=== PATIENT | male | born 1950 | race Caucasian/White ===

== ENCOUNTER 2018-10-12 08:01 | Inpatient (IN) ==
--- NOTE | 2018-09-21 12:10 | PAT Medication Instructions ---
Medication Instructions Date of Service September 21, 2018 Home Medications acetaminophen 650 mg PO Q12H PRN aspirin, buffered 325 mg PO QAM hydrocodone bitartrate 15 mg PO Q12H PRN lysine 500 mg PO QDD meloxicam 15 mg PO QAM metoprolol tartrate 25 mg PO QAM multivitamin 1 tab PO QAM potassium citrate 5 meq PO BID taurine 500 mg PO QDD ASK your surgeon for instructions meloxicam 15 mg PO QAM ASK your prescriber and surgeon aspirin, buffered 325 mg PO QAM STOP taking 2 weeks before surgery (or as soon as possible if surgery is within 2 weeks) lysine 500 mg PO QDD taurine 500 mg PO QDD DO NOT take the morning of surgery multivitamin 1 tab PO QAM potassium citrate 5 meq PO BID Take morning of surgery With a small sip of water, OTHERWISE NOTHING TO EAT OR DRINK AFTER MIDNIGHT: acetaminophen 650 mg PO Q12H PRN (okay to take up to 4 hours prior to surgery if needed) hydrocodone bitartrate 15 mg PO Q12H PRN (okay to take up to 4 hours prior to surgery if needed) metoprolol tartrate 25 mg PO QAM Take evening before surgery acetaminophen 650 mg PO Q12H PRN (if needed) hydrocodone bitartrate 15 mg PO Q12H PRN (if needed) potassium citrate 5 meq PO BID Other Notes If you have any questions please call us at [phone] or [phone] or [phone] or [phone]
--- NOTE | 2018-09-22 12:59 | Anesthesiology Consultation ---
Date of Service September 22, 2018 Assessment & Plan (1) Encounter for pre-operative examination: Cardio: 08/25/18: Chronic a. fib with controlled ventricular rate on ASA therapy "but I believe the patient does have increased risk for ischemic stroke and so we recommended chronic anticoagulation." Per cardio, to initiate Eliquis 5mg twice daily after knee surgery. "Cleared at low cardiac risk" for upcoming surgery. Chart Review Chart Review: Acceptable Risk for Surgery (pending surgeon-ordered PCP clearance scheduled 09/29 (Dr. Calderón)) and Patient seen in Pre Admission Testing Teaching & Discussion Pre-Anesthesia Teaching/Discussion Notes: Instructed NPO after midnight before surgery,except medications with 15 cc of water. Medication instructions pr ovided according to the PAT guidelines. History Surgery Operation Date: 10/12/18 10:20 Proposed Procedures p Left Total Knee Arthroplasty - [place] Antoinette Anderson MD Height/Weight Height: 5 ft 9 in Weight: 88.3 kg Allergies Allergy/AdvReac Type Severity Reaction Status Date / Time No Known Allergies Allergy Verified 09/17/18 12:23 Medications Home Medications Medication Instructions Recorded Confirmed Last Taken acetaminophen 650 mg PO Q12H PRN 09/17/18 09/17/18 Unknown aspirin, buffered 325 mg PO QAM 09/17/18 09/17/18 Unknown hydrocodone bitartrate 15 mg PO Q12H PRN 09/17/18 09/17/18 Unknown lysine 500 mg PO QDD 09/17/18 09/17/18 Unknown meloxicam 15 mg PO QAM 09/17/18 09/17/18 Unknown metoprolol tartrate 25 mg PO QAM 09/17/18 09/17/18 Unknown multivitamin 1 tab PO QAM 09/17/18 09/17/18 Unknown potassium citrate 5 meq PO BIDM 09/17/18 09/17/18 Unknown taurine 500 mg PO QDD 09/17/18 09/17/18 Unknown Past Medical History Medical History Atrial fibrillation Chronic neck and back pain History of skin cancer chest, face Hypertension Scoliosis Exercise / Class Metabolic Activity II 4-5 Yardwork/Stairs/Walk up hill Past Family History Family History Sister Family history of diabetes mellitus Other History of kidney stones Osteoarthritis Past Surgical History Surgical History History of ankle surgery LEFT History of carpal tunnel surgery of left wrist History of carpal tunnel surgery of right wrist History of surgery on left wrist Hx of LASIK Hx of arthroscopic knee surgery Hx of foot surgery LEFT Hx of nasal septoplasty Hx of toe surgery RIGHT Past Anesthesia History No Family Hx of Anesthesia Complications and Other Patient states with deviated septum (~2007) went into post-op new onset a. fib (now currently stable/monitored by cardio). History of PONV No Hx of PONV and No Hx of Motion Sickness Social History Smoking Status: Never smoker Do You Dip or Chew Tobacco: No Hx Alcohol Use: Yes alcohol intake frequency: holidays/special occasions only Hx Substance Use: No substance use type: does not use Review of Systems Hx reflux (no recent issues). Patient denies chest pain, shortness of breath, dyspnea on exertion, cough, wheezing. Physical Exam Vital Signs VITALS BP 132/92 P 70 TEMP 97.8 SP02 95%RA RESP 18 PHYSICAL Full neck and c-spine range of motion. Full TMJ range of motion. TMD 3.5 finger breaths Mallampati Score 3 Dentition: intact, upper front/several all over crowns Lungs: clear throughout to auscultation Cardiac: irregular rhythm, regular rate, no murmurs noted Spine: normal Carotid arteries: negative bruit Extremities: no edema Testing Laboratory Results 09/22/18 13:24 09/22/18 13:24 PT 10.3 Seconds (9.0-12.0) 09/22/18 13:24 INR 1.0 (0.9-1.1) 09/22/18 13:24 APTT 26.2 Seconds (21.0-31.0) 09/22/18 13:24 Blood Type O Negative 09/22/18 13:24 Antibody Screen NEGATIVE 09/22/18 13:24 Electrocardiogram Date: 09/22/18 Findings: + AFIB @ (82) Echocardiogram Date: 08/25/18 EF 50%. Normal contractility of wall segments. cLVH. Severe LAD. Mild RVD. Unable to determine diastolic function due to a. fib pattern. Thickened MV with MR. Mild ID. Mildly dilated aortic root (3.9cm).
[2018-09-22 14:25] LABS: Basophils # (auto) 0.05 K/uL (0-0.2); Basophils % (auto) 0.8 %; Eosinophils # (auto) 0.27 K/uL (0-0.5); Eosinophils % (auto) 4.3 %; Hematocrit (blood only) 46.5 % (42-52); Hemoglobin 15.5 g/dL (14.0-18.0); Immature Granulocytes # (auto) 0.01 K/uL (0.00-0.02); Immature Granulocytes % (auto) 0.2 %; Lymphocytes # (auto) 1.51 K/uL (1.2-3.4); Mean Corpuscular Hgb Conc 33.3 g/dL (32-36); Mean Corpuscular Volume 85.8 fL (80-100); Mean Platelet Volume 9.2 fL (7.4-10.4); Monocytes % (auto) 7.9 %; Neutrophils # (auto) 3.96 K/uL (1.4-6.5); Neutrophils % (auto) 62.8 %; Platelet Count 262 K/uL (130-400); RDW Coefficient of Variation 14.2 % (11.5-14.5); RDW Standard Deviation 44.1 fL (36.4-46.3); Red Blood Count 5.42 M/uL (4.7-6.1)
[2018-09-22 14:38] LABS: Partial Thromboplastin Time 26.2 Seconds (21.0-31.0); Prothrombin Time 10.3 Seconds (9.0-12.0)
[2018-09-22 14:42] LABS: Albumin Level 3.7 gm/dl (3.4-5.0); BUN Creatinine Ratio 16.5 (10-20); Bilirubin Direct 0.1 mg/dl (0-0.2); Calcium 8.9 mg/dl (8.5-10.1); Creatinine Clr Calc Pharmacy 58.3 ml/min; Est GFR (African American) 61.9; Est GFR (Non-African American) 53.4; Potassium 4.4 mmol/L (3.5-5.1)
[2018-09-22 14:45] LABS: Bilirubin,Total 0.6 mg/dl (0.2-1); Total Protein 6.8 gm/dl (6.4-8.2)
[~2018-10-12 08:01] MED LIST: BUPIVACAINE 0.5 % 5 MG/1 ML PF 10ML VIAL ONE; CEFAZOLIN 2000MG 2,000 MG/15 ML SYR IV SCH; CeleBREX 200 MG CAP PO SCH; LACTATED RINGER'S 1,000 ML IV SCH; LR 500ML BOLUS, THEN 15ML/HR IV SCH; ROPIVACAINE 0.5% 5 MG/ML 30 ML VIAL ONE; ROPIVACAINE 0.5% HCL/PF 150 MG, BUPIVACAINE 0.5% MPF 30 ML, EPINEPHrine 0.15 MG, Ketoro... INFIL SCH; TRANEXAMIC ACID 1,000 MG **IV Intra-op IV SCH; TRANEXAMIC ACID 1,000 MG **IV Pre-op IV SCH
[2018-10-12] MEDS ORDERED: MIDAZOLAM HCL 1 MG/ML 2ML VIAL ONE ×2 (09:28)
[2018-10-12] MEDS ORDERED: fentaNYL citrate 100 MCG/2 ML VIAL ONE ×2 (09:28→13:05)
[2018-10-12] MEDS ORDERED: ORTHO JOINT ANESTHETIC ONE (09:59)
--- NOTE | 2018-10-12 09:59 | History & Physical Bridge Note ---
Date of Service October 12, 2018 History & Physical Bridge Note I have examined the patient, reviewed the History & Physical and in the interval since the performance of the History & Physical I have noted the following changes of clinical significance: no changes noted
[2018-10-12] MEDS ORDERED: PROPOFOL IV EMULSION 10 MG/ML 20 ML VIAL IV ONE ×2 (11:34→12:58)
[2018-10-12] MEDS ORDERED: LIDOCAINE HCL 2% 2 ML VIAL/AMP(20MG/ML) INFIL ONE (11:37)
[2018-10-12] MEDS ORDERED: KETAMINE HCL INJ 50 MG/ML 10 ML VIAL ONE (12:46)
--- NOTE | 2018-10-12 13:35 | Post Operative Brief Note ---
Immediate Post Op Note v1 Date of Surgery October 12, 2018 Pre & Post Diagnosis Operation Date: 10/12/18 10:20 Pre-Op Diagnosis: Left Knee Osteoarthritis Post-Op Diagnosis: Left Knee Osteoarthritis Procedure Operation Date: 10/12/18 10:20 Actual Procedures p Left Total Knee Arthroplasty(Left) - Indio Anderson MD Surgeon Indio Anderson MD Seed Corn Manager Production Salinas Sanchez PA-C & Tu French MD Estimated Blood Loss 100 Findings Consistent with Post-Op Diagnosis Fluids 2000 cc Specimens Left Knee contents Anesthesia Type MAC Spinal Regional Complications none
--- NOTE | 2018-10-12 13:36 | Operative Report ---
Post Operative Report Pre & Post Diagnosis Operation Date: 10/12/18 10:20 Pre-Op Diagnosis: Left Knee Osteoarthritis Post-Op Diagnosis: Left Knee Osteoarthritis Procedure Operation Date: 10/12/18 10:20 Actual Procedures p Left Total Knee Arthroplasty(Left) - Indio Anderson MD Surgeon Indio Anderson MD Cellular Equipment Repairer Salinas Sanchez PA-C & Tu French MD Estimated Blood Loss 100 Findings See Below Examined Under Anesthesia: ROM -- There was 5 degrees to 120 degrees of flexion Ligamentous examination -- revealed stable Dillan, posterior drawer, varus and valgus stress at 0 and 30 degrees. [place] Type IV changes of tricompartments, with [id number] contact, sclerosis, osteophytes. In addition there was crystalline deposits within the soft tissue and menisci. Fluids 2000 cc Specimens Left knee contents Drains n/a Anesthesia Type MAC Spinal Regional Complications none Indications This is a 68-year-old male who has clinical and radiographic findings consistent with osteoarthritis of the a left knee. I recommended that a left total knee replacement be performed. The patient understands the risks of surgery, which include but not limited to: bleeding, infection, re-operation, damage to nerves and arteries, continued knee pain, knee stiffness, DVT, and . The patient understands all of these instructions and explanations, all of his questions have been satisfactorily addressed and the patient has elected to proceed. Informed consent was signed. Description of Procedure IMPLANTS: 1. Femur: Triathlon #5 left PS. 2. Tibia: Triathlon #6 [place]. 3. Insert: Triathlon #6 x 9 mm PS X3 poly. 4. Patella: Triathlon A32 x 10 mm X3 poly. 5. Palacos G cement. Procedure: The patient was taken to the Operating Room and placed in the supine position after spinal and adductor canal nerve block was administered. My initials and a multidisciplinary time-out were used to identify the left leg as the correct operative limb. A tourniquet was placed high in the thigh. Prior to the incision, 2 grams of intravenous Ancef were given. The left leg was then prepped and draped in a standard sterile fashion. An Esmarch was used to exsanguinate the leg and the tourniquet was inflated to 250 mmHg. The planned 22 cm incision midline proximally, slightly curved to incorporate previous wounds medially, was created exposing the extensor mechanism. The medial parapatellar arthrotomy was made and the patella was everted. The patella was addressed first. It was prepared by reaming from 24 mm down to 14 mm. An A32 button was found to fit best. The peg holes were made in the standard fashion. The femur was addressed next and the guide dale was placed intramedullary. The initial cutting block was placed with 5 degrees of valgus and removing 10 mm for the anterior cut. The cut was made and the 4-in-1 cutting block for a size 5 femur was placed. These cuts and the cuts to place the box were made in the standard fashion. Our attention was then drawn to the tibia cut with the external cutting guide, taking 2 mm from the medial low side. There was sufficient extension and flexion gap to fit a 9 mm spacer, was unable to fit an 11 mm spacer. A #6 Tibial baseplate fit well. A trial with a 9 mm spacer showed excellent stability in both flexion and extension, with good ligament balance. Range of motion of 0-125 degrees. The tibial baseplate was pinned and the final preparation for the keel and stem was made. All the trial components were tested again, with good stability and thumbs free tracking of the patella. All components were removed. The tourniquet was deflated. Hemostasis was obtained. 90 ml of total knee cocktail were injected into the soft tissues and periosteum. A bone plug was placed in the femur and covered with bone wax. After a 15 minute break, the limb was exsanguinated again and the tourniquet was re-inflated. All surfaces were copiously irrigated prior to placement of the components. The femoral component and Tibial baseplate were placed with the first batch of cement and a 9 mm trial placed. During the second batch of cement the patellar button was placed. Again with the 9 mm trial poly was placed and the range of motion and stability were unchanged. Once the cement had cured, the 9 mm X3 poly was placed. The extensor mechanism was closed with 1-0 and 0 Vicryl with the knee bent approximately 60 degrees in a standard fashion. The peritenon and deep fascia was closed with 2-0 Vicryl. The subcutaneous layer was closed with 3-0 Vicryl. The skin was closed with Zipline. The limb was cleaned and dried. 4x4 dressing was placed over top followed by ABDs, sterile Webril, and a foot to thigh Bassem bandage. The patient was then transferred to the Recovery Room in stable condition. The sponge and needle counts were correct. POST-OP INSTRUCTIONS: The patient will be WBAT. The patient will be admitted to the hospital. The patient will use the knee immobilizer when ambulating and standing until good quad control is achieved. Labs will be obtained during her stay. DVT prophylaxis will included aspirin 325 twice a day for 6 weeks, TEDs, and mechanical foot pumps. The dressing will be changed prior to their discharge or postop day #2 and covered with a Silverlon dressing, whichever comes first. I attest to the content of the Intraoperative Record and any orders documented therein. Any exceptions are noted below.
--- NOTE | 2018-10-12 13:41 | Operative Report ---
Post Operative Report Pre & Post Diagnosis Operation Date: 10/12/18 10:20 Pre-Op Diagnosis: Left Knee Osteoarthritis Post-Op Diagnosis: Left Knee Osteoarthritis Procedure Operation Date: 10/12/18 10:20 Actual Procedures p Left Total Knee Arthroplasty(Left) - Indio Anderson MD Surgeon Indio Anderson MD Core Blower Salinas Sanchez PA-C & Tu French MD Estimated Blood Loss 100 Findings Consistent with Post-Op Diagnosis Specimens see operative report Drains none Complications none Disposition Accompanied Patient To Recovery: Yes Disposition: Recovery Room Indications This 68-year-old white male presented to the office with complaints of intractable left knee pain. He had tried conservative care measures without improvement. Patient elected to proceed with surgical intervention after being educated about potential risks and outcomes. Preoperative imaging was obtained. Description of Procedure Patient was administered a regional block and spinal anesthetic and then taken to the operating room where he was given sedation. He was prepped and draped in the usual sterile fashion. Please see Dr. Anderson's operative report for specifics of the procedure. I was present for the entire case from initial patient positioning through final wound closure. Assistance was provided in tissue retraction, hemostasis, trial implant placement, final implant placement, and final wound closure. Patient was taken to the recovery room in satisfactory condition. I attest to the content of the Intraoperative Record and any orders documented t herein. Any exceptions are noted below.
--- NOTE | 2018-10-12 13:55 | Operative Report ---
Post Operative Report Pre & Post Diagnosis Operation Date: 10/12/18 10:20 Pre-Op Diagnosis: Left Knee Osteoarthritis Post-Op Diagnosis: Left Knee Osteoarthritis Procedure Operation Date: 10/12/18 10:20 Actual Procedures s/p Left Total Knee Arthroplasty(Left) - Indio Anderson MD Surgeon Dr Indio Anderson MD Meat Wrapper Salinas Sanchez PA-C & Tu French MD Estimated Blood Loss 100 Findings Consistent with Post-Op Diagnosis Specimens see operative report please Drains none Complications none Disposition Accompanied Patient To Recovery: Yes Disposition: Recovery Room Indications 68 yr old male with intractable left knee pain with radiological evidence of end stage osteoarthritis Description of Procedure Patient was administered regional block and spinal anaesthesia and then was taken to the operating toom with sedation. His left lower extremity was prepped and draped in standard fashion. Please see Dr Anderson's op report for specifications of the procedure. I was present during the entire case and assisted Dr Anderson in tissue retraction, closure and dressing. I also accompanied the patient to the recovery room in satisfactory condition. I attest to the content of the Intraoperative Record and any orders documented therein. Any exceptions are noted below. Supervising Physician Co-Signing Physician Notes Dr Indio Anderson MD
--- NOTE | 2018-10-12 14:14 | XRay Report ---
LEFT KNEE 2 VIEWS History: Left total knee arthroplasty. Degenerative arthritis. Postop. FINDINGS: The patient is status post a left total knee arthroplasty. The hardware is intact. No fract ure or dislocation. IMPRESSION: Left total knee arthroplasty. No evidence for hardware complication. Electronically signed by: Neal Romero M.D. 10/12/2018 2:13 PM
[2018-10-12] MEDS ORDERED: ATROPINE SULFATE 0.1 MG/ML 10ML SYR IV PRN (14:15)
[2018-10-12] MEDS ORDERED: ePHEDrine sulfate 50 MG/ML AMP IV PRN (14:15)
[2018-10-12] MEDS ORDERED: LABETALOL HCL IV 5 MG/ML 20ML IV PRN ×2 (14:26→14:27)
[2018-10-12] MEDS ORDERED: LABETALOL HCL IV 5 MG/ML 20ML IV ONE (14:30)
--- NOTE | 2018-10-12 14:33 | Anesthesiology Progress Note ---
Date of Service October 12, 2018 Anesthesia Post Procedure Vital Signs Vital Signs: Temp Pulse Pulse Resp BP BP Pulse Ox 10/12/18 14:10 82 21 161/97 H 100 10/12/18 14:00 82 12 152/94 H 100 10/12/18 13:50 84 14 145/99 H 98 10/12/18 13:41 36.4 C L 89 14 163/99 H 98 10/12/18 08:37 36.5 C 82 20 167/112 H 96 Pain Intensity Left Knee: Pain Intensity: 0 Transfer of Care Handoff Completed per policy Notes Mental Status: alert / awake / arousable and participated in evaluation Patient Amnestic to Procedure: Yes Nausea / Vomiting: adequately controlled Pain: adequately controlled Airway Patency, RR, SpO2: stable & adequate BP & HR: stable & adequate Hydration State: stable & adequate Neuraxial Anesthesia: was administered and sensory block is resolving Anesthetic Complications: no major complications apparent
[2018-10-12] MEDS ORDERED: ONDANSETRON INJ 2 MG/ML 2 ML VIAL IV PRN (15:10)
[2018-10-12] MEDS ORDERED: MAGNESIUM HYDROXIDE SUSP 30 ML UDC PO PRN (15:10)
[2018-10-12] MEDS ORDERED: DiphenhydrAMINE HCL 50 MG/ML VIAL IV PRN (15:10)
[2018-10-12] MEDS ORDERED: TAMSULOSIN HCL 0.4 MG CAP PO PRN (15:10)
[2018-10-12] MEDS ORDERED: OXYCODONE HCL IR 5 MG TAB (IMMEDIATE RELEASE) PO PRN (15:10)
[2018-10-12] MEDS ORDERED: METOCLOPRAMIDE HCL INJ 5 MG/ML 2 ML VIAL IV PRN (15:10)
[2018-10-12] MEDS ORDERED: HYDROmorphone INJ 0.5 MG/0.5 ML SYR IV PRN (15:10)
[2018-10-12] MEDS ORDERED: NALOXONE HCL 0.4 MG/1 ML VIAL/CARP IV PRN (15:10)
[2018-10-12] MEDS ORDERED: ALUMINUM/MAGNESIUM SUSP 30 ML UDC PO PRN (15:10)
[2018-10-12] MEDS ORDERED: BISACODYL 10 MG SUPP PR PRN (15:10)
[2018-10-12] MEDS: ACETAMINOPHEN 500 MG TAB PO SCH ×2 (16:08→21:33)
[2018-10-12] MEDS: SODIUM CHLORIDE 0.9% 1000ML 1,000 ML IV SCH ×2 (16:10→23:47)
--- NOTE | 2018-10-12 16:44 | Hospitalist Consultation ---
Date of Consultation October 12, 2018 Assessment & Plan (1) Post-operative state: post L TKA 10/12 DVT proph, pain control, bowel regimen per primary Monitor for acute blood loss - cbc tomorrow (2) Atrial fibrillation: continue metoprolol and ASA - not on anticoagulation Will give dose of metoprolol tartrate tonight as he missed his dose this morning (3) Hypertension: continue metoprolol Supervising Physician Co-Signing Physician Notes I supervised Mone Aguirre NP on this patient's care. I discussed the plan of care with her with the plan being as written in her note except for any following changes/exceptions: None. Patient seen and examined today separate from Ms. Aguirre. The pain in the knee is very tolerable. He has a history of A. fib and hypertension. He is not on anticoagulation due to his low chads-VASC score; however, he may start it soon. Overall, he is doing well postoperatively. We will follow along to monitor his heart rate, and help any other way we can. History of Present Illness Attending Physician: Indio Anderson MD History of Present Illness Mr. Plummer is post left TKA. He is feeling well, no complaints. Pmhx: htn, atrial fibrillation not on anticoagulation, kidney stones Social: retired, never smoker, rare alcohol, lives with a significant other Family: father with kidney disease, mother with stomach cancer and DMII Allergies Allergy/AdvReac Type Severity Reaction Status Date / Time No Known Allergies Allergy Verified 10/12/18 08:32 Home Medications Home Medications Medication Instructions Recorded Confirmed Type acetaminophen 650 mg PO Q12H PRN 09/17/18 10/12/18 History aspirin, buffered 325 mg PO QAM 09/17/18 10/12/18 History hydrocodone bitartrate 15 mg PO Q12H PRN 09/17/18 10/12/18 History meloxicam 15 mg PO QAM 09/17/18 10/12/18 History multivitamin 1 tab PO QAM 09/17/18 10/12/18 History metoprolol succinate 25 mg PO DAILY 10/12/18 10/12/18 History potassium citrate 10 meq PO BIDM 10/12/18 10/12/18 History Patient History Medical History Atrial fibrillation Chronic neck and back pain History of skin cancer chest, face Hypertension Scoliosis Surgical History History of ankle surgery LEFT History of carpal tunnel surgery of left wrist History of carpal tunnel surgery of right wrist History of surgery on left wrist Hx of LASIK Hx of arthroscopic knee surgery Hx of foot surgery LEFT Hx of nasal septoplasty Hx of toe surgery RIGHT Family History Sister Family history of diabetes mellitus Other History of kidney stones Osteoarthritis Social History Preferred Language: Georgian Communication Ability: Effective Beliefs That Will Affect Care: None Current Living Situation: Significant Other Feels Safe at Home: Yes Safety Concerns: Feels Safe At This Time Smoking Status: Never smoker Do You Dip or Chew Tobacco: No ; Second Hand Exposure: Yes (OCCASSIONALLY) ; Hx Alcohol Use: Yes Hx Substance Use: No Review of Systems Review of Systems: All systems reviewed & are unremarkable except as noted in HPI & below Physical Exam Physical Exam: General: no distress Eyes: normal inspection, PERLL Respiratory: chest non tender, clear to auscultation, normal breath sounds, no respiratory distress, no accessory muscle use Cardiac: regular rate and rhythm, no rub or gallop, no murmur, no edema, no jvd GI/: active bowel sounds, no abd pain or tenderness, soft, non distended Extremities: normal range of motion, normal strength, non tender Neuro:oriented x 3, moves all extremities Psych: alert, normal mood and affect Skin: normal color, dry Results & Data Vital Signs (Past 12 Hours) Vital Signs Temp Pulse Pulse Pulse Resp BP BP 10/12/18 16:04 36.5 C 66 16 148/87 H 10/12/18 15:34 36.5 C 69 16 151/95 H 10/12/18 14:55 36.6 C 78 16 143/93 H 10/12/18 14:38 36.6 C 10/12/18 14:30 76 12 135/83 10/12/18 14:20 80 12 148/96 H 10/12/18 14:10 82 21 161/97 H 10/12/18 14:00 82 12 152/94 H 10/12/18 13:50 84 14 145/99 H 10/12/18 13:41 36.4 C L 89 14 163/99 H 10/12/18 08:37 36.5 C 82 20 167/112 H Pulse Ox 10/12/18 16:04 100 10/12/18 15:34 99 10/12/18 14:55 95 10/12/18 14:38 10/12/18 14:30 99 10/12/18 14:20 99 10/12/18 14:10 100 10/12/18 14:00 100 10/12/18 13:50 98 10/12/18 13:41 98 10/12/18 08:37 96 PG Care Time/CCT Total # of Minutes Spent Total Time Spent with Patient: Total time spent is greater than 50% in coordination of care (as documented) at patient's floor/unit and/or counseling patient:
[2018-10-12] MEDS ORDERED: METOPROLOL TARTRATE 25 MG TAB PO ONE (16:45)
--- NOTE | 2018-10-12 16:50 | Orthopedic Progress Note ---
Date of Service October 12, 2018 Assessment & Plan (1) Total knee replacement status: POD #0, s/p left TKA. Regular Diet. WBAT with knee immobilizer when ambulating and standing until good quad control is achieved. PT/OT. Continue pain control. Ice and elevate. Will check Labs in AM. DVT prophylaxis: ASA 325mg BID 6 weeks. TEDs for minimum 2 weeks or until the swelling decreases to normal, and mechanical foot pumps while in the hospital. The dressing will be changed prior to their discharge or postop day #2 and covered with a Silverlon dressing, whichever comes first. Appreciate medicine's input. D/C planning. Present on Admission?: No Subjective Doing alright Physical Exam Physical Exam: LLE: Dressing is clean, dry, intact. Able to wiggle toes up and down. Able to preform straight leg raise. Sensation to Light touch intact. Calf is soft and nontender. Results & Data Vital Signs (Past 12 Hours) Vital Signs Temp Pulse Pulse Pulse Resp BP BP 10/12/18 16:04 36.5 C 66 16 148/87 H 10/12/18 15:34 36.5 C 69 16 151/95 H 10/12/18 14:55 36.6 C 78 16 143/93 H 10/12/18 14:38 36.6 C 10/12/18 14:30 76 12 135/83 10/12/18 14:20 80 12 148/96 H 10/12/18 14:10 82 21 161/97 H 10/12/18 14:00 82 12 152/94 H 10/12/18 13:50 84 14 145/99 H 10/12/18 13:41 36.4 C L 89 14 163/99 H 10/12/18 08:37 36.5 C 82 20 167/112 H Pulse Ox 10/12/18 16:04 100 10/12/18 15:34 99 10/12/18 14:55 95 10/12/18 14:38 10/12/18 14:30 99 10/12/18 14:20 99 10/12/18 14:10 100 10/12/18 14:00 100 10/12/18 13:50 98 10/12/18 13:41 98 10/12/18 08:37 96 Diagnostic Findings AP and lateral left knee, show cemented components in excellent position. Evidence of recent left TKA.
[2018-10-12] MEDS: ASCORBIC ACID 500 MG TAB PO SCH (17:45)
[2018-10-12] MEDS: FERROUS GLUCONATE 324 MG TAB PO SCH (17:45)
[2018-10-12] MEDS: POTASSIUM CITRATE 10 MEQ TAB PO SCH (17:46)
[2018-10-12] MEDS: KETOROLAC TROMETHAMINE 15 MG/ML VIAL IV SCH ×2 (17:46→23:47)
[2018-10-12] MEDS: CEFAZOLIN 2000MG 2,000 MG/15 ML SYR IV SCH (17:46)
[2018-10-12] MEDS ORDERED: SENNA 8.6 MG TAB PO SCH (21:00)
[2018-10-12] MEDS: DOCUSATE SODIUM 100 MG CAP PO SCH (21:33)
[2018-10-12] MEDS: ASPIRIN 325 MG ECTAB PO SCH (21:33)
[2018-10-13] MEDS: CEFAZOLIN 2000MG 2,000 MG/15 ML SYR IV SCH (02:55)
[2018-10-13] MEDS: ACETAMINOPHEN 500 MG TAB PO SCH ×2 (06:00→13:41)
[2018-10-13] MEDS: KETOROLAC TROMETHAMINE 15 MG/ML VIAL IV SCH ×2 (06:00→11:57)
[2018-10-13 07:08] LABS: Hematocrit (blood only) 40.1 % (42-52); Mean Corpuscular Hgb Conc 32.4 g/dL (32-36); Mean Platelet Volume 8.5 fL (7.4-10.4); Platelet Count 207 K/uL (130-400); RDW Coefficient of Variation 14.3 % (11.5-14.5); RDW Standard Deviation 45.8 fL (36.4-46.3); Red Blood Count 4.61 M/uL (4.7-6.1); White Blood Count 12.24 K/uL (4.8-10.8)
[2018-10-13 07:38] LABS: BUN Creatinine Ratio 19.2 (10-20); Calcium 8.8 mg/dl (8.5-10.1); Creatinine Clr Calc Pharmacy 67.9 ml/min; Est GFR (African American) 73.3; Est GFR (Non-African American) 63.3; Potassium 4.4 mmol/L (3.5-5.1)
[2018-10-13] MEDS ORDERED: dexAMETHasone 10 MG in SYRINGE 0 ML IV SCH (08:00)
[2018-10-13] MEDS: FERROUS GLUCONATE 324 MG TAB PO SCH ×2 (08:26→17:43)
[2018-10-13] MEDS: ASCORBIC ACID 500 MG TAB PO SCH ×2 (08:26→17:43)
[2018-10-13] MEDS: DOCUSATE SODIUM 100 MG CAP PO SCH (08:26)
[2018-10-13] MEDS: POTASSIUM CITRATE 10 MEQ TAB PO SCH ×2 (08:26→17:43)
[2018-10-13] MEDS: ASPIRIN 325 MG ECTAB PO SCH (08:27)
[2018-10-13] MEDS ORDERED: MULTIVITAMIN TAB PO SCH ×2 (09:00)
[2018-10-13] MEDS ORDERED: METOPROLOL SUCC 25MG EXT REL TAB PO SCH (09:00)
--- NOTE | 2018-10-13 10:07 | Anesthesiology Progress Note ---
Date of Service October 13, 2018 Anesthesia Post Procedure Vital Signs Vital Signs: Temp Pulse Pulse Pulse Resp BP Pulse Ox 10/13/18 09:51 128/82 10/13/18 08:15 36.7 C 80 18 144/100 H 96 10/13/18 03:07 36.9 C 81 16 137/85 98 10/12/18 23:35 36.4 C L 76 16 139/92 97 10/12/18 19:23 36.7 C 64 16 122/82 98 10/12/18 18:00 36.3 C L 76 16 145/90 H 98 10/12/18 17:00 36.5 C 74 16 144/92 H 99 10/12/18 16:04 36.5 C 66 16 148/87 H 100 10/12/18 15:34 36.5 C 69 16 151/95 H 99 10/12/18 14:55 36.6 C 78 16 143/93 H 95 10/12/18 14:38 36.6 C 10/12/18 14:30 76 12 135/83 99 10/12/18 14:20 80 12 148/96 H 99 10/12/18 14:10 82 21 161/97 H 100 10/12/18 14:00 82 12 152/94 H 100 10/12/18 13:50 84 14 145/99 H 98 10/12/18 13:41 36.4 C L 89 14 163/99 H 98 Pain Intensity Left Knee: Pain Intensity: 0 Notes Mental Status: alert / awake / arousable and participated in evaluation Nausea / Vomiting: adequately controlled Pain: adequately controlled Airway Patency, RR, SpO2: stable & adequate BP & HR: stable & adequate Hydration State: stable & adequate Neuraxial Anesthesia: sensory block resolved
--- NOTE | 2018-10-13 10:21 | Orthopedic Progress Note ---
Date of Service October 13, 2018 Assessment & Plan (1) Total knee replacement status: POD #1, s/p left TKA. Regular Diet. WBAT with walker, DC knee immobilizer left lower extremity. He has good quad control today. PT/OT. Continue pain control. Ice and elevate. H&H stable. DVT prophylaxis: ASA 325mg BID 6 weeks. TEDs for minimum 2 weeks or until the swelling decreases to normal, and mechanical foot pumps while in the hospital. The dressing will be changed prior to their discharge or postop day #2 and covered with a Silverlon dressing, whichever comes first. We will leave dressing on today until he determines whether it Appreciate medicine's input. D/C planning. His plan is to return home with outpatient physical therapy at [facility] in [place]. Prescription placed on chart. Will discuss findings with Dr. Anderson. He will also see later today. I, Dr. Anderson, saw and examined the patient and discussed the management with my PA. I reviewed my PAs note and agree with the documented findings and the plan of care I developed. Patient is okay for discharge later today. Subjective doing well, no complaints of pain left knee. Has been out of bed, tolerating regular diet, denies chest pain or shortness of breath. Has been going to the bathroom okay. Is able to lift his leg today comfortably. He is does have his own walker at home. He would like to go home at discharge with outpatient physical therapy. He states that if he does well in physical therapy and it is okay with Dr. Anderson he like to go home later today. His pain is been well controlled. Physical Exam Physical Exam: Exam of left knee. He is able to do belly straight leg raises left lower extremity. He has no significant distal edema. Distal sensation is normal. Distal pulses are 1+. Dressings have been left intact, they are clean, dry and intact. Strength left lower extremity 5/5. No calf tenderness bilaterally. PEGGY stockings on the right lower extremity. Results & Data Vital Signs (Past 12 Hours) Vital Signs Temp Pulse Resp BP Pulse Ox 10/13/18 09:51 128/82 10/13/18 08:15 36.7 C 80 18 144/100 H 96 10/13/18 03:07 36.9 C 81 16 137/85 98 10/12/18 23:35 36.4 C L 76 16 139/92 97 Laboratory Results 10/13/18 10/13/18 10/13/18 Range/Units 06:57 06:57 06:57 WBC 12.24 H (4.8-10.8) K/uL RBC 4.61 L (4.7-6.1) M/uL Hgb 13.0 L (14.0-18.0) g/dL Hct 40.1 L (42-52) % MCV 87.0 (80-100) fL MCH 28.2 (25-34) pg MCHC 32.4 (32-36) g/dL RDW Std Deviation 45.8 (36.4-46.3) fL RDW Coeff of Marzena 14.3 (11.5-14.5) % Plt Count 207 (130-400) K/uL MPV 8.5 (7.4-10.4) fL Sodium 140 (136-145) mmol/L Potassium 4.4 (3.5-5.1) mmol/L Chloride 108 H (98-107) mmol/L Carbon Dioxide 28 (21-32) mmol/L Anion Gap 5.0 (3-11) BUN 23 H (7-18) mg/dl Creatinine 1.19 (0.6-1.4) mg/dl Est Cr Clr Drug Dosing 67.9 ml/min Est GFR ( Amer) 73.3 Est GFR (Non-Af Amer) 63.3 BUN/Creatinine Ratio 19.2 (10-20) Glucose 119 H (70-99) mg/dl Calcium 8.8 (8.5-10.1) mg/dl Hepatitis C Ab Screen Neg (Neg) Diagnostic Findings LEFT KNEE 2 VIEWS History: Left total knee arthroplasty. Degenerative arthritis. Postop. FINDINGS: The patient is status post a left total knee arthroplasty. The hardware is intact. No fracture or dislocation. IMPRESSION: Left total knee arthroplasty. No evidence for hardware complication.
--- NOTE | 2018-10-13 16:02 | Hospitalist Progress Note ---
Date of Service October 13, 2018 Assessment & Plan (1) Post-operative state: post L TKA 8/6 DVT proph, pain control, bowel regimen per primary Monitor for acute blood loss (2) Atrial fibrillation: continue metoprolol and ASA - not on anticoagulation continue metoprolol Would recommend patient start on anticoagulation such as apixaban at this point. His CHADS-VASC is 2 and since he will require dvt prophylaxis anyway post op this might be a good opportunity to start it. He is in a rate controlled A.fib today. Discussed with patient and he does not want to start without talking to his personal shopper. I did call the cardiology office and left a message. If I hear back I will start anticoagulation but otherwise he should discuss with his personal shopper after discharge (3) Hypertension: continue metoprolol Hospitalists will sign off at this time. Please call with any questions. Subjective Patient feels well, no complaints Review of Systems Review of Systems: All systems reviewed & are unremarkable except as noted in HPI & below Physical Exam Physical Exam: General: no distress Eyes: normal inspection, PERLL Respiratory: chest non tender, clear to auscultation, normal breath sounds, no respiratory distress, no accessory muscle use Cardiac: irregular rate and rhythm, no rub or gallop, no murmur, no edema, no jvd GI/: active bowel sounds, no abd pain or tenderness, soft, non distended Extremities: normal range of motion, normal strength, non tender Neuro/Psych: alert and oriented x 3, normal mood and affect Skin: normal color, dry Results & Data Vital Signs (Past 12 Hours) Vital Signs Temp Pulse Resp BP Pulse Ox 10/13/18 11:59 36.8 C 81 18 108/72 96 10/13/18 09:51 128/82 10/13/18 08:15 36.7 C 80 18 144/100 H 96 PG Care Time/CCT Total # of Minutes Spent Total Time Spent with Patient: Total time spent is greater than 50% in coordination of care (as documented) at patient's floor/unit and/or counseling patient:
--- NOTE | 2018-10-13 16:06 | Discharge Summary ---
Date of Service October 13, 2018 Discharge Data Consultations 10/12/18 15:10 Consult Case Management - Discharge Planning Routine Consult Hospitalist Routine Procedures Performed Operation Date: 10/12/18 10:20 Actual Procedures p Left Total Knee Arthroplasty(Left) - Indio Anderson MD Hospital Course (1) Left knee DJD: Patient was admitted to [facility] on October 12, 2018 after undergoing an elective left total knee arthroplasty by Dr. Indio Anderson. His surgery was performed with spinal anesthesia and peripheral nerve block. He was given 2 g of IV Ancef for surgical prophylaxis which was continued for 24 hours after surgery. He tolerated the surgery well without any intraoperative or post operative complications. Postoperatively, in the recovery room x-rays were obtained of his left total knee arthroplasty and showed a stable prosthesis with no evidence of fractures. He was allowed out of bed, weight-bear as tolerated on his left lower extremity with the assistance of a walker and a knee immobilizer on his left knee until quad control regained. He was given a regular diet during his inpatient stay and he tolerated that well.His pain was well controlled during his inpatient stay. He did not develop any postoperative complications. He was seen and evaluated by physical therapy and outpatient therapy and did very well with them and was independent. Postoperative labs and vital signs were stable. His dressing Was changed on postoperative day one, Silverlon was placed.He was placed on aspirin 325 mg twice daily for DVT prophylaxis. PEGGY stockings and AV impulse boots were also used for postoperative DVT prophylaxis. We also encouraged early mobility. He did well ambulating in his room. He was seen and evaluated by the hospitalist service and consultation for postoperative medical management. His medical conditions remained stable during his inpatient stay. He was seen by case management and elected to go home with his with outpatient physical therapy. He was deemed safe for home by physical therapy and occupational therapy and was discharged to his home in stable condition October 13, 2018. Discharge instructions were provided. All questions were answered. Discharge Instructions As per EMR
[2018-10-13] MEDS ORDERED: OXYCODONE IR HOME PACK PO ONE (16:16)
[2018-10-13] MEDS ORDERED: CeleBREX 200 MG CAP PO SCH (21:00)
== END 2018-10-13 18:57 | disposition home or self-care (01) | DRG 470 ==
LOC: ASU 08:01 → 3E 13:50

== ENCOUNTER 2023-11-24 07:37 | Observation (INO) ==
--- NOTE | 2023-11-18 11:53 | Anesthesiology Consultation ---
Date of Service November 18, 2023 Assessment & Plan (1) Encounter for pre-operative examination: Chart Review Chart Review: Acceptable Risk for Surgery History Surgery Operation Date: 11/24/23 10:05 Proposed Procedures p Right Total Knee Arthroplasty - Indio Antoinette Anderson MD Height/Weight Height: 5 ft 9.5 in Weight: 97.522 kg Allergies Allergy/AdvReac Type Severity Reaction Status Date / Time erythromycin base Allergy Intermediate Hives Verified 09/22/23 05:49 [From Erythrocin] Medications Home Medications Medication Instructions Recorded Confirmed Last Taken metoprolol succinate 25 mg 12.5 mg PO QAM 10/12/18 11/11/23 09/21/23 08:00 tablet,extended release 24 hr apixaban 5 mg tablet (Eliquis) 5 mg PO BID 02/21/19 11/11/23 09/18/23 07:00 cholecalciferol (vitamin D3) 50 2,000 units PO DAILY 02/21/19 11/11/23 Unknown mcg (2,000 unit) tablet gabapentin 600 mg tablet 600 mg PO TID #90 tabs 10/29/20 11/11/23 09/21/23 20:00 esomeprazole magnesium 40 mg 40 mg PO BID PRN Acid Reflux 02/15/21 11/11/23 Unknown capsule,delayed release (Nexium) naproxen 500 mg tablet 500 mg PO BID 08/14/23 11/11/23 09/20/23 21:00 omega-3 fatty acids 1,250 mg PO DAILY 08/14/23 11/11/23 Unknown ondansetron HCl 4 mg tablet 4 mg PO Q8H PRN n/v 08/14/23 11/11/23 Unknown tizanidine 6 mg capsule 4 mg PO TID PRN Muscle Spasm 08/14/23 11/11/23 09/21/23 18:00 turmeric 400 mg capsule 400 mg PO DAILY 08/14/23 11/11/23 09/21/23 08:00 vitamin B complex 1 tab PO QAM 08/14/23 11/11/23 09/21/23 08:00 Past Medical History Medical History HLD (hyperlipidemia) History of cellulitis (03/2023) left miller, was seeing wound clinic @ [facility]; states is currently healed Acid reflux controlled Hx of erectile dysfunction (08/05/23) implant in place History of prostate cancer (2019) s/p prostatectomy - no chemo or XRT Atrial fibrillation controlled w/ meds reason for eliquis; follows w/ Dr Purvis [facility] station [facility] [place] Scoliosis Chronic neck and back pain History of skin cancer chest, shoulder Hypertension Past Family History Family History Sister Family history of diabetes mellitus Other History of kidney stones Osteoarthritis Past Surgical History Surgical History History of cardioversion ~2005 History of lumbar surgery (04/2021) [facility] History of total left knee replacement (2018) Hx of prostatectomy Hx of LASIK History of surgery on left wrist History of carpal tunnel surgery of right wrist History of carpal tunnel surgery of left wrist Hx of arthroscopic knee surgery Hx of nasal septoplasty Hx of foot surgery LEFT Hx of toe surgery RIGHT History of ankle surgery LEFT Social History Smoking Status: Never smoker Do You Dip or Chew Tobacco: No Hx Alcohol Use: Yes alcohol intake frequency: a few times a month Hx Substance Use: No substance use type: does not use Testing Laboratory Results Laboratory Tests 11/17/23 11:34 Hgb 16.2 Plt Count 212 Potassium 4.7 Creatinine 1.39 Electrocardiogram Date: 08/28/23 Findings: + NSR @ (66) Echocardiogram Date: 10/15/21 EF: 55-60% LV Function: normal Valvular Disease: + no significant valvular disease
[~2023-11-24 07:37] MED LIST changes: +BUPIVACAINE 0.25% PF 30 ML VIAL ONE; -CEFAZOLIN 2000MG 2,000 MG/15 ML SYR IV SCH; -CeleBREX 200 MG CAP PO SCH; +DEXAMETHASONE SOD INJ 4 MG/ML VIAL ONE; +EPINEPHrine INJ 1 MG/ML AMP ONE; -LACTATED RINGER'S 1,000 ML IV SCH; -LR 500ML BOLUS, THEN 15ML/HR IV SCH; -ROPIVACAINE 0.5% 5 MG/ML 30 ML VIAL ONE; -ROPIVACAINE 0.5% HCL/PF 150 MG, BUPIVACAINE 0.5% MPF 30 ML, EPINEPHrine 0.15 MG, Ketoro... INFIL SCH; -TRANEXAMIC ACID 1,000 MG **IV Intra-op IV SCH; -TRANEXAMIC ACID 1,000 MG **IV Pre-op IV SCH
--- OUTSIDE RECORDS SUMMARY | 2023-11-24 08:18 | External Medical Summary | Continuity of Care Document ---
Author Name Unknown Organization [facility] [id number] Address [address] [place] [id number] Care Team Providers Care Ship Mate Name Role Phone Suresh Calderón Primary Care Physician [phone] Encounter [facility] [id number] Date(s): 11/17/23 - 11/17/23 [facility] [address] [id number] [facility] [address] [place] [id number] Encounter Diagnosis OA (osteoarthritis) of knee(Discharge Diagnosis) - 11/17/23 Discharge Disposition: Home or Self Care Attending Physician: MD Monica, Indio A Allergies, Adverse Reactions, Alerts Substance Criticality Severity Reaction Reaction Severity Status erythromycin hives Active Medications amoxicillin 500 mg oral capsule Start: 10/02/22 11:53:00 AM EDT, 4 cap, PO, As indicated, Disp# 12 cap, Refills: 3, one hour before dental and other procedures as directed, Pharmacy: [id number] Start Date: 10/02/22 Status: Ordered Eliquis 5 mg oral tablet Start: 01/06/19 10:56:00 AM EDT, 1 tab, PO, bid Start Date: 01/06/19 Status: Ordered esomeprazole Start: 11/17/23 9:46:00 AM EDT, prn Start Date: 11/17/23 Status: Ordered gabapentin 600 mg oral tablet Start: 10/04/20 11:00:00 AM EDT, 1 tab, PO, tid Start Date: 10/04/20 Status: Ordered methocarbamol Start: 10/02/22 11:33:00 AM EDT, PO Start Date: 10/02/22 Status: Ordered Metoprolol Succinate ER 25 mg oral tablet, extended release Start: 11/02/15 11:16:00 AM EDT, 1 tab, PO, Daily Start Date: 11/02/15 Status: Ordered naproxen Start: 08/28/23 1:57:00 PM EDT, 500 mg =, prn Start Date: 08/28/23 Status: Ordered Vitamin B Complex Start: 11/27/22 1:18:00 PM EDT Start Date: 11/27/22 Status: Ordered Vitamin D3 Start: 11/17/23 9:45:00 AM EDT, PO, Daily Start Date: 11/17/23 Status: Ordered Vitamin D3 Start: 11/27/22 1:18:00 PM EDT Start Date: 11/27/22 Status: Ordered Zofran Start: 11/27/22 1:19:00 PM EDT, PRN nausea Start Date: 11/27/22 Status: Ordered Mental Status 11/17/23 Barriers to Learning one year None evide nt Mandatory Health Literacy Documentation Yes Health Literacy Communication Barriers N ever Primary Language [place] Problem List Condition Confirmation Course Effective Dates Status H ealth Status Informant S/P TKR (total knee replacement) Confirmed Active OA (osteoarthritis) of knee Confirmed Active Osteoarthritis of right knee Confirmed Active Pain 1 Confirmed Active 1left knee Diagnosis Diagnosis Type Effective Dates Health Status Cl inical Service Informant OA (osteoarthritis) of knee Discharge Diagnosis 11/17/23 Procedures Procedure Date Related Diagnosis Body Site Status Total knee arthroplasty 1 09/22/23 Completed TOTAL KNEE ARTHROPLASTY 2 10/12/18 Completed 1Right 2LEFT Vital Signs Most recent to oldest [Reference Range]: 1 Height 174 cm (11/17/23 9:40 AM) Patient Weight 101 kg (11/17/23 9:40 AM) Body Mass Index 33.36 kg/m2 (11/17/23 9:40 AM) Temperature [36.5-37.9 DegC] 36.6 DegC (11/17/23 9:40 AM) Heart Rate 82 bpm (11/17/23 9:40 AM) Blood Pressure 150/90mmHg (11/17/23 9:40 AM) Cuff Pulse Pressure 60 mmHg (11/17/23 9:40 AM) Social History Social History Type Response Smoking Status Never smoked cigaret maria fernanda Sex Male Sex Representation Male (finding) History and physical note * DESI Patiño [place]: PERFORM Event Display: . Authored Date: [id number] Primary Care Provider MD Stephane, Suresh Tovar Chief Complaint R knee discuss surgery History of Present Illness [id number] Delores presents today forf/u right knee pain and TKA surgical consent. He is scheduled for surgery on 11/24/2023. He presents today with a right knee brace.He previously had IOVERA treatment on 06/25/2023 did not offer much relief. He presents today with hopes of having surgery. His last cortisone injection was done on 11/27/22. Today he rates his pain a 2/10. [1] After discussing the risk and benefits of surgerywith Dr. Anderson patient has elected to proceed. He has a history of A-fib his is on Eliquis for that. Denies any history of blood clotsorheart attack. He previously had cellulitis on his leg but that has cleared and he has been alexa ared by Dr. Grimm. Review of Systems He says that he has been having a sinus and left ear issue for which she sees ENT tomorrow. DeniesRecent illnesses, colds/flu, pneumonia, COVID or COVID exposures; DeniesFevers, chills, malaise; DeniesChest pain, heart palpitations; DeniesShortness of breath, cough; DeniesHeadache or blurry vision; DeniesAbdominal pain, nausea, vomiting, diarrhea, or urinary symptoms Physical Exam Vitals & Measurements T:36.6C HR:82(Monitored) BP:150/90 SpO2:96% HT:174cm WT:101kg WT:101.000kg(Dosing) BMI:33.36 General: Pt is well nourished, seated on the exam table AA&O, in NAD, calm and cooperative during exam HENT: Nontraumatic, no gross deformity, hearing and vision grossly in-tact, PERRL Heart: +S1, +S2, RRR, no murmurs appreciated Lungs: CTABL, no wheezing appreciated Focusing on the patient'sright lower extremity: 2+ DP pulse Sensation to light touch is intact Motor to the gastroc soleus, tibialis anterior, and EHL is 5/5. Able to perform straight leg raise. + Medial and lateral joint line tenderness. - Kennedy's Ligamentous examination exhibits: Stable Dillan 0 mm anterior translation and firm endpoint Posterior drawer stable Varus stress at5 and 30stable Valgus stress at5 is stableand [id number] of pseudolaxity - Effusion Range of motion 5 to 100 Crepitus with ROM Varus alignment [2] Diagnostic Results Dr. Patelwedan OA series done previouslyincluding bilateral hip to ankle,AP standing, 45 degree flexion PA,lateral, and sunrise views of the right knee which showsbone on bone medialjoint space, sclerosis, and sub- chondral cysts, marginal osteophytes. Significant degenerative changes also notedwithin the patellofemoral compartment. [3] Dr. Patelwed the bilateral AP standinghips to anklesperformed 11/17/2023 in the Footfall123 system,which shows18 degrees varus alignmenton the right. There is evidence of hisleft TKA as well asspinalhardwareas well asleftfoot hardware. [4] Assessment/Plan 1.OA (osteoarthritis) of knee Preop The risks and benefits of surgery as well as the post operative course was explained and discussed with the patient. Written consent obtained. The patient's past medical history, surgeries, social history, medication list, allergies and PDMP were reviewed and confirmed with the patient. Patientobt ainedmedical clearance. Preoperative orders were placed. We discussed postoperative pain medications includingoxycodone, tylenol,as well as icing and elevating to control pain. DVT prophylaxis -Patient will resume their previous anti-coagulationthe morning after surgery. He was instructed to holdhis Eliquis for3 days prior. Additional medications -stool softener as needed to prevent constipation while on narcotics, multi-vitamin OR Vitamin C 500mg BID x 2 weeks, Iron 324mg BIDx 2 weeks to promote healing. The patient has been scheduled for post operative appointments. Prescription for home health was placed as well as a PT prescription. [place] He will call to set those appointments up. He already has a walker. The patient was given a preoperative booklet and we reviewed the most pertinent things leading up to the surgery and the day of surgery; including any assisted devices pt may need, when/who to call for the surgery time,where to arrive the day of surgery, NPO after midnight, medications to hold, prepping the skin with CHG to prevent infection etc. All of their questions and concerns were answered today. They were instructed to call our office if they have any further questions or concerns. Problem List/Past Medical History Ongoing OA (osteoarthritis) of knee Osteoarthritis of right knee Pain S/P TKR (total knee replacement) Procedure/Surgical History Total knee arthroplasty| Service Date: 09/22/2023TOTAL KNEE ARTHROPLASTY| Service Date: 10/12/2018 Medications amoxicillin(amoxicillin 500 mg oral capsule), 2000 mg= 4 cap, PO, As indicated, 3 refills apixaban(Eliquis 5 mg oral tablet), 5 mg= 1 tab, PO, bid cholecalciferol(Vitamin D3), PO, Daily cholecalciferol(Vitamin D3) esomeprazole gabapentin(gabapentin 600 mg oral tablet), 600 mg= 1 tab, PO, tid methocarbamol, PO metoprolol(Metoprolol Succinate ER 25 mg oral tablet, extended release), 25 mg= 1 tab, PO, Daily multivitamin(Vitamin B Complex) naproxen, 500 mg ondansetron(Zofran) Allergies erythromycinhives Vancomycin Social History Smoking Status Never smoked cigarettes Recommendations Health Maintenance Pending(in the next year) OverDue Adult Influenza Vaccine due09/06/23and every 1year Due Adult COVID-19 Vaccination due11/17/23Unknown Frequency Adult Social Determinants of Health Screening due11/17/23Unknown Frequency Adult Tdap/Td Vaccine due11/17/23Unknown Frequency Colorectal Cancer Screening due11/17/23Unknown Frequency Hepatitis C Screening due11/17/23One-time only Lipid Screening due11/17/23Unknown Frequency Medicare Annual Wellness Visit due11/17/23and every 1year Pneumococcal Vaccine Older Adults due11/17/23One-time only Shingles Vaccine due11/17/23One-time only Satisfied(in the past 1 year) Satisfied Body Mass Index on11/17/23.Satisfied by ARAMIS Miranda Kennie L [1]Indio Anderson; Melissa Muir 11/17/2023 09:59 EDT [2]Indio Anderson; Melissa Muir 11/17/2023 09:59 EDT [3]Indio Anderson; Melissa Muir 11/17/2023 09:59 EDT [4]Indio Anderson; Melissa Muir 11/17/2023 09:59 EDT Electronic Signature on File Electronically Reviewed/Signed by: Tamica Patiño PA-C Author Signature Dt/Tm:11/17/2023 04:03 PM Physician Contract Recruiter, Dept. of Orthopaedics and Sports Medicine [facility] - [address], [address] [place] [address] Electronically Reviewed/Signed by: Indio Anderson MD Cosigner Signature Dt/Tm: 11/17/2023 05:13 PM [facility] Director Of Revenue Department of Orthopaedics and Rehabilitation [facility] [address], [place] [address] MK Ortho Outpt Note * MD Anderson Dov A: MODIFY MD Anderson Dov A: MODIFY Event Display: Ortho Outpt Note Authored Date: Name:SLIME LAL Patient Number:[id number] :1950 Date of Service:11/17/2023 CHIEF COMPLAINT: Right knee TKA surgical consent HPI: [id number] Delores presents today forf/u right knee pain and TKA surgical consent. He is scheduled for surgery on 11/24/2023. He presents today with a right knee brace.He previously had IOVERA treatment on 06/25/2023 did not offer much relief. He presents today with hopes of having surgery. His last cortisone injection was done on 11/27/22. Today he rates his pain a 2/10. PHYSICAL EXAM: Focusing on the patient'sright lower extremity: 2+ DP pulse Sensation to light touch is intact Motor to the gastroc soleus, tibialis anterior, and EHL is 5/5. Able to perform straight leg raise. + Medial and lateral joint line tenderness. - Kennedy's Ligamentous examination exhibits: Stable Dillan 0 mm anterior translation and firm endpoint Posterior drawer stable Varus stress at5 and 30stable Valgus stress at5 is stableand 51paw0ci of pseudolaxity - Effusion Range of motion 5 to 100 Crepitus with ROM Varus alignment DIAGNOSTIC REVIEW: Ireviewedan OA series done previouslyincluding bilateral hip to ankle,AP standing, 45 degree flexion PA,lateral, and sunrise views of the right knee which showsbone on bone medial joint space, sclerosis, and sub-chondral cysts, marginal osteophytes. Significant degenerative changes also notedwithin the patellofemoral compartment. I reviewed the bilateral AP standinghips to anklesperformed 11/17/2023 in the Footfall123 system,which shows18 degrees varus alignmenton the right. There is evidence of hisleft TKA as well asspinalhardwareas well asleftfoot hardware. IMPRESSION: 73 year old male with right knee OA, with varus alignment PLAN: -After a lengthy discussion with the patient today regarding my above clinical findings, as well asreviewing their imaging with them, their treatment options of conservative management with injections, activity modifications versus surgical intervention with a knee replacement were discussed. - The risk and benefits of each were discussed.Patient declined hearing therisks of surgery which are included but not limited to: Infection, bleeding, nerve damage, continued pain, failure of hardware, deep vein thrombosis, PE, stroke, SC, and . - They would like to proceed with surgery and informed consent was signed for right TKA. He will have an H&P and leg length films obtained after today's evaluation - Follow-up as scheduled for surgery on 11/24/2023 and subsequent post-operative appointments The patient understood all my instructions and explanation; all their questions were satisfactorilyaddressed. ATTESTATION: I, Melissa Muir, scribing forand in the presence of, Indio Anderson, on this date,11/17/2023 09:59:48. I, Dr. Anderson, saw and examined the patient with Melissa Muir acting as my scribe. I reviewed the note and agree with the documented findings and the plan of care I developed. Electronic Signature on File Electronically Reviewed/Signed by: Melissa Muir Author Signature Dt/Tm:11/17/2023 10:08 AM Electronically Reviewed/Signed by: Indio Anderson MD Cosigner Signature Dt/Tm: 11/17/2023 11:19 AM [facility] Director Of Revenue Department of Orthopaedics and Rehabilitation [facility] [address], [place] [address] [place] Patient Care team information Care Team Personnel Name: MD Calderón Donald F Position: Referring Member Role: Primary Care Provider Address: [address] [place] [address] [place] [id number] [place] Care Team Related Persons Name: JERRI DAVENPORT Name: JERRI DAVENPORT"
[2023-11-24] MEDS ORDERED: ePHEDrine sulfate 50 MG/ML AMP IV PRN (08:43)
[2023-11-24] MEDS ORDERED: fentaNYL citrate PF 100 MCG/2 ML VIAL IV PRN (08:43)
[2023-11-24] MEDS ORDERED: ONDANSETRON INJ 2 MG/ML 2 ML VIAL IV PRN ×2 (08:43→13:59)
[2023-11-24] MEDS ORDERED: PROMETHAZINE HCL 6.25 MG in SODIUM CHLORIDE 0.9% 50 ML IV PRN (08:43)
[2023-11-24] MEDS ORDERED: ATROPINE SULFATE 0.1 MG/ML 10ML SYR IV PRN (08:43)
[2023-11-24] MEDS ORDERED: MIDAZOLAM HCL 1 MG/ML 2ML VIAL ONE (08:47)
[2023-11-24] MEDS ORDERED: fentaNYL citrate PF 100 MCG/2 ML VIAL ONE (08:48)
[2023-11-24] MEDS: CeleBREX 200 MG CAP PO SCH (08:52)
[2023-11-24] MEDS: ACETAMINOPHEN 500 MG TAB PO SCH (08:53)
[2023-11-24] MEDS: Scopolamine 1 MG TDSY TD SCH (08:54)
[2023-11-24] MEDS: LR 15ML/HR IV SCH (08:56)
[2023-11-24] MEDS: LR 60ML/HR IV SCH (08:56)
[2023-11-24] MEDS: TRANEXAMIC ACID 1,000 MG **IV Pre-op IV SCH (09:53)
--- NOTE | 2023-11-24 09:53 | History & Physical Bridge Note ---
Date of Service November 24, 2023 History & Physical Bridge Note I have examined the patient, reviewed the History & Physical and in the interval since the performance of the History & Physical I have noted the following changes of clinical significance: no changes noted
[2023-11-24] MEDS ORDERED: PROPOFOL IV EMULSION 10 MG/ML 20 ML VIAL IV ONE ×2 (09:55→11:55)
[2023-11-24] MEDS: ceFAZolin 2000MG 2,000 MG/15 ML SYR IV SCH ×2 (10:14→19:39)
[2023-11-24] MEDS: ORTHO JOINT ANESTHETIC ONE (10:48)
[2023-11-24] MEDS ORDERED: ePHEDrine sulfate 50 MG/5 ML SYR ONE (11:06)
[2023-11-24] MEDS: ROPIV 0.5% 246mg, Ketorolac 30mg, EPINEPHrine 0.5mg in NSS INFIL SCH (11:55)
[2023-11-24] MEDS ORDERED: KETAMINE HCL 10MG/ML SYR ONE (11:57)
[2023-11-24] MEDS: TRANEXAMIC ACID 1,000 MG **IV Intra-op IV SCH (12:10)
--- NOTE | 2023-11-24 12:38 | Post Operative Brief Note ---
Immediate Post Op Note Date of Surgery November 24, 2023 Pre & Post Diagnosis Operation Date: 11/24/23 10:05 Pre-Op Diagnosis: Right Knee Osteoarthritis Post-Op Diagnosis: Right Knee Osteoarthritis I identified the patient and participated in the time-out.: Yes Procedure Operation Date: 11/24/23 10:05 Actual Procedures p Right Total Knee Arthroplasty(Right) - Indio Anderson MD Surgeon Indio Anderson MD Atm Technician Manasa Patiño PA-C (No fellow avail) Estimated Blood Loss 75 Findings Consistent with Post-Op Diagnosis Fluids 1300 cc Specimens Right knee contents Anesthesia Type MAC Spinal Regional Complications none
--- NOTE | 2023-11-24 12:38 | Operative Report ---
Post Operative Report Pre & Post Diagnosis Operation Date: 11/24/23 10:05 Pre-Op Diagnosis: Right Knee Osteoarthritis Post-Op Diagnosis: Right Knee Osteoarthritis I identified the patient and participated in the time-out.: Yes Procedure Operation Date: 11/24/23 10:05 Actual Procedures p [Right] Total knee replacement, imageless computer assisted navigation (Right) - Indio Anderson MD Surgeon Indio Anderson MD Nuclear Station Operator Manasa Patiño PA-C (No fellow avail) Estimated Blood Loss 75 Findings See Below Examined Under Anesthesia: ROM -- There was 10 degrees to 105 degrees of flexion Ligamentous examination -- revealed stable Dillan, posterior drawer, varus and valgus stress at 10 and 30 degrees. [place]erbridge Grade IV changes of all 3 compartments, severe erosion of the medial tibial plateau. Three was synovitis and crystallin staining of the soft tissues. Fluids 1300 cc Specimens Right knee contents Anesthesia Type MAC Spinal Regional Complications none Indications This is a 73-year-old male who has clinical and radiographic findings consistent with osteoarthritis of the a right knee. I recommended that a right total knee replacement be performed. The patient understands the risks of surgery, which include but not limited to: bleeding, infection, re-operation, damage to nerves and arteries, continued knee pain, knee stiffness, DVT, and . The patient understands all of these instructions and explanations, all of his questions have been satisfactorily addressed and the patient has elected to proceed. Informed consent was signed. Description of Procedure IMPLANTS: 1. Femur: Triathlon #8 Right PS. 2. Tibia: Triathlon #7 [place] with 12 x 50 mm stem. 3. Insert: Triathlon #7 x 11 mm PS X3 poly. 4. Patella: Triathlon A32 x 10 mm X3 poly. 5. Palacos G cement. Manasa Patiño PA-C is assisting with positioning, retracting, and closure due to fellow not available. Procedure: The patient was taken to the Operating Room and placed in the supine position after spinal and adductor canal nerve block was administered. My initials and a multidisciplinary time-out were used to identify the right leg as the correct operative limb. A tourniquet was placed high in the thigh. Prior to the incision, 2 grams of intravenous Ancef were given. One g of TXA was given pre- operatively and another after the tourniquet was released. The right leg was then prepped and draped in a standard sterile fashion. An Esmarch was used to exsanguinate the leg and the tourniquet was inflated to 250 mmHg. The planned mid-line 20 cm incision was created exposing the extensor mechanism. The medial parapatellar arthrotomy was made and the patella was everted. The patella was addressed first. It was prepared by reaming from 26 mm down to 16 mm. An A32 button was found to fit best. The peg holes were made in the standard fashion. The femur was addressed next and using computer assisted OrthoAlign with 3 degre es of flexion and 0 degrees of valgus, removing 10 mm in the standard fashion for the distal cut. The cut was made and the 4-in-1 cutting block for a size 8 femur was placed. These cuts and the cuts to place the box were made in the standard fashion. Our attention was then drawn to the tibia cut with using imageless computer assisted OrthoAlign, taking 9 mm from the lateral high side. There was sufficient extension and flexion gap to fit a 11 mm spacer. A #7 Tibial baseplate fit well. A trial with a 11 mm spacer showed excellent stability in both flexion and extension, with good ligament balance, and thumbs free patellar tracking. Range of motion of 0-125 degrees. The tibial baseplate was prepped for the keel and stem. A stem was used due to some areas of soft bone, to avoid subsidence after drilling the hard eburnated medial bone. All components were removed. 90 ml of total knee cocktail were injected into the soft tissues and periosteum. All surfaces were copiously irrigated prior to placement of the components. The Tibial baseplate component followed by Femoral were cemented in place and a 11mm trial placed. Next, the patellar button was placed using the same cement. Once the cement had cured, the range of motion and stability were unchanged. The 11 mm X3 poly was placed. Again, the range of motion and stability were unchanged. The tourniquet was deflated. Hemostasis was obtained. The extensor mechanism was closed with 1-0 Vicryl and 0 Stratafix with the knee bent approximately 60 degrees in a standard fashion. The peritenon and deep fascia was closed with 2-0 Vicryl. The subcutaneous layer was closed with 3-0 Vicryl. The skin was closed with Zipline and shield. The limb was cleaned and dried. 4x4 dressing was placed over top followed by ABDs, sterile Webril, and a foot to thigh Bassem bandage. The patient was then transferred to the Recovery Room in stable condition. The sponge and needle counts were correct. POST-OP INSTRUCTIONS: The patient will be WBAT. The patient will be admitted to the hospital. Complete 24-hour course antibiotics. Labs will be obtained during the stay. DVT prophylaxis will included resumption of Eliquis tomorrow in the am due to spinal, TEDs, and mechanical foot pumps. The dressing will be changed postop day #2-3 and covered with a Silverlon dressing. I attest to the content of the Intraoperative Record and any orders documented therein. Any exceptions are noted below.
--- NOTE | 2023-11-24 13:03 | Anesthesiology Progress Note ---
Date of Service November 24, 2023 Anesthesia Post Procedure Vital Signs Vital Signs: Temp Pulse Resp BP Pulse Ox O2 Del Method O2 Flow Rate 11/24/23 12:55 36.4 C L 88 18 135/82 97 Oxymask 6 11/24/23 08:31 36.7 C 89 20 166/115 H 97 Room Air Pain Intensity Right Knee: Pain Intensity: 2 Transfer of Care Handoff Completed per policy Notes Mental Status: alert / awake / arousable Patient Amnestic to Procedure: Yes Nausea / Vomiting: adequately controlled Pain: adequately controlled Airway Patency, RR, SpO2: stable & adequate BP & HR: stable & adequate Hydration State: stable & adequate Neuraxial Anesthesia: was administered and sensory block is resolving Anesthetic Complications: no major complications apparent and Pt Satisfied with anesthetic care
--- NOTE | 2023-11-24 13:15 | Operative Report ---
Post Operative Report Pre & Post Diagnosis Operation Date: 11/24/23 10:05 Pre-Op Diagnosis: Right Knee Osteoarthritis Post-Op Diagnosis: Right Knee Osteoarthritis I identified the patient and participated in the time-out.: Yes Procedure Operation Date: 11/24/23 10:05 Actual Procedures p Right Total Knee Arthroplasty(Right) - Indio Antoinette Anderson MD Surgeon Dr anderson Knife Blade Polisher Manasa Patiño PA-C (No fellow avail) Estimated Blood Loss 75 Findings Consistent with Post-Op Diagnosis Specimens none Description of Procedure Pt was taken to operating room and properly positioned for procedure. Refer to anesthesia's note for anesthesia used. Pt was given pre-op antibiotics. Prepped and draped in sterile fashion. I was present during the entire case and assisted with positioning, instrumentation, closure and dressings. Please see surgeon's op report for further detail. Pt was awake and transferred to PACU in stable condition I attest to the content of the Intraoperative Record and any orders documented therein. Any exceptions are noted below.
[2023-11-24 13:46] VITALS: RESP 18
[2023-11-24] MEDS ORDERED: bisacodyL 10 MG SUPP PR PRN (13:59)
[2023-11-24] MEDS ORDERED: TAMSULOSIN HCL 0.4 MG CAP PO PRN (13:59)
[2023-11-24] MEDS ORDERED: MAGNESIUM HYDROXIDE SUSP 30 ML UDC PO PRN (13:59)
[2023-11-24] MEDS ORDERED: NALOXONE HCL 0.4 MG/1 ML VIAL/CARP IV PRN (13:59)
[2023-11-24] MEDS ORDERED: METOCLOPRAMIDE HCL INJ 5 MG/ML 2 ML VIAL IV PRN (13:59)
[2023-11-24] MEDS ORDERED: tiZANidine HCL 4 MG TABLET PO PRN (13:59)
[2023-11-24] MEDS ORDERED: PANTOprazole 40 MG TAB PO PRN (14:18)
[2023-11-24] MEDS: SODIUM CHLORIDE 0.9% 1,000 ML IV SCH (14:26)
[2023-11-24] MEDS: oxyCODONE HCL IR 5 MG TAB (IMMEDIATE RELEASE) PO PRN (14:28)
--- NOTE | 2023-11-24 16:33 | XRay Report ---
RIGHT KNEE 2 VIEWS History: Right total knee arthroplasty. Degenerative arthritis. Postop. FINDINGS: The patient is status post a right total knee arthroplasty. The hardware is intact. No frac ture or dislocation. IMPRESSION: Right total knee arthroplasty. No evidence for hardware complication. ACT 112: Negative or not required by law. Electronically signed by: Neal Romero M.D. 11/24/2023 4:32 PM
[2023-11-24] MEDS: GABAPENTIN 600 MG TAB PO SCH (16:34)
[2023-11-24] MEDS: HYDROmorphone INJ 0.5 MG/0.5 ML SYR IV PRN (16:34)
[2023-11-24] MEDS: Scopolamine CHECK PATCH PLACEMENT SCH (16:34)
[2023-11-24] MEDS: ASCORBIC ACID 500 MG TAB PO SCH (16:35)
[2023-11-24] MEDS: FERROUS GLUCONATE 324 MG TAB PO SCH (16:35)
--- NOTE | 2023-11-24 16:53 | Orthopedic Progress Note ---
Date of Service November 24, 2023 Assessment & Plan (1) Osteoarthritis of right knee: Plan: POD #0 s/p R TKA, doing as well as expected. Resume diet. WBAT with walker. OOB to chair. Continue pain control. Check labs tomorrow. DVT prophylaxis: TEDs 3 weeks, foot pumps while in hospital, Resume Eliquis 11/25/23 am. PT/OT. D/C planning. Dressing to be changed POD 2-3 to Silverlon type dressing. Admission and Anticipated Discharge Date Admission Date: November 24, 2023 Subjective Right knee pain Physical Exam Physical Exam: RLE: BCR < 2 sec. Sensation to light touch intact distally. Wiggling ankle and toes. Calf soft and non-tender. Dressing is clean, dry, intact. Able to preform straight leg raise. Results & Data Vital Signs (Past 12 Hours) Vital Signs Temp Pulse Pulse Resp BP Pulse Ox O2 Del Method 11/24/23 15:29 36.3 C L 76 18 146/86 H 94 Room Air 11/24/23 15:00 36.5 C 81 18 159/91 H 95 Room Air 11/24/23 14:30 36.3 C L 80 18 160/91 H 96 Room Air 11/24/23 13:59 36.5 C 80 18 143/84 H 94 Room Air 11/24/23 13:45 80 18 155/91 H 94 Room Air 11/24/23 13:35 72 16 130/83 95 Room Air 11/24/23 13:25 36.4 C L 85 16 134/77 95 Room Air 11/24/23 13:15 77 22 137/92 95 Room Air 11/24/23 13:05 84 16 146/92 H 95 Oxymask 11/24/23 12:55 36.4 C L 88 18 135/82 97 Oxymask 11/24/23 08:31 36.7 C 89 20 166/115 H 97 Room Air O2 Flow Rate 11/24/23 15:29 11/24/23 15:00 11/24/23 14:30 11/24/23 13:59 11/24/23 13:45 11/24/23 13:35 11/24/23 13:25 11/24/23 13:15 11/24/23 13:05 3 11/24/23 12:55 6 11/24/23 08:31 Diagnostic Findings RIGHT KNEE 2 VIEWS History: Right total knee arthroplasty. Degenerative arthritis. Postop. FINDINGS: The patient is status post a right total knee arthroplasty. The hardware is intact. No fracture or dislocation. IMPRESSION: Right total knee arthroplasty. No evidence for hardware complication. ACT 112: Negative or not required by law. Electronically signed by: Neal Romero M.D. 11/24/2023 4:32 PM
--- NOTE | 2023-11-24 17:15 | Hospitalist Consultation ---
Date of Consultation November 24, 2023 Assessment & Plan (1) Osteoarthritis of right knee: s/p RIGHT Total knee replacement, imageless computer assisted navigation (Right) - Indio Anderson MD. EBL 75cc Pain control, antiemetics, bowel regimen per primary service 24hr abx ordered PT/OT consults pending, WBAT DVT proph: eliquis to be resumed 11/24 however ordered to resume in the evening and per operative report to resume AM following surgery (pre-op clearance to hold x 2 days prior to surgery and day of but to resume day following). SCDs, tony hose in place Monitor labs in AM (2) Atrial fibrillation: eliquis held pre-op as cleared by provider above message to Dr Anderson, changed eliquis to resume AM 11/24 On metoprolol once daily at baseline but did not take dose this morning prior to surgery and will give ONE TIME NOW, continue usual 12.5mg metoprolol succinate daily for AM (3) Hypertension: Chronic, stable in setting of surgery/pain control at 135/85 Continues metoprolol daily, first dose now as above as did not take prior to surgery (4) Lumbar spinal stenosis: Plan Thank you for allowing hospitalist service to participate in the care of Mr Plummer. Hospitalist service will follow along. Please call with any questions/concerns. History of Present Illness Reason for Consultation: medical management Requesting Physician: Dr Anderson Attending Physician: Indio Anderson MD History of Present Illness 73yo male with PMHx significant for atrial fibrillation, HTN, presented for RIGHT TKA with Dr Anderson this morning. Evaluated in room 378-1, sitting up in the chair eating supper. Pain controlled with ordered medications. No CP/SOB. He had held his eliquis for 2 days prior to surgery and today is day three. Discussed to resume in AM per discussion with Dr Anderson. Patient denies any fevers/chills, abdominal pain, nausea/vomiting. Anticipating monitoring overnight and therapy evals in am and discharge. He reports he only took zofran this morning and not having taken his metoprolol. HRs in 7--80s at present and will discuss with supervising provider about giving dose now or waiting until AM. Allergies Allergy/AdvReac Type Severity Reaction Status Date / Time erythromycin base Allergy Intermediate Hives Verified 11/24/23 08:24 [From Erythrocin] vancomycin Allergy Intermediate Hives Verified 11/24/23 08:24 Home Medications Medication Instructions Recorded Confirmed Type metoprolol succinate 25 mg 12.5 mg PO QAM 10/12/18 11/24/23 History tablet,extended release 24 hr apixaban 5 mg tablet (Eliquis) 5 mg PO BID 02/21/19 11/24/23 History cholecalciferol (vitamin D3) 50 2,000 units PO DAILY 02/21/19 11/24/23 History mcg (2,000 unit) tablet gabapentin 600 mg tablet 600 mg PO TID #90 tabs 10/29/20 11/24/23 Rx esomeprazole magnesium 40 mg 40 mg PO BID PRN Acid Reflux 02/15/21 11/24/23 History capsule,delayed release (Nexium) naproxen 500 mg tablet 500 mg PO BID 08/14/23 11/24/23 History omega-3 fatty acids 1,250 mg PO DAILY 08/14/23 11/24/23 History ondansetron HCl 4 mg tablet 4 mg PO Q8H PRN n/v 08/14/23 11/24/23 History tizanidine 6 mg capsule 4 mg PO TID PRN Muscle Spasm 08/14/23 11/24/23 History turmeric 400 mg capsule 400 mg PO DAILY 08/14/23 11/24/23 History vitamin B complex 1 tab PO QAM 08/14/23 11/24/23 History Patient History Medical History HLD (hyperlipidemia) History of cellulitis (03/2023) left miller, was seeing wound clinic @ [facility]; states is currently healed Acid reflux controlled Hx of erectile dysfunction (08/05/23) implant in place History of prostate cancer (2019) s/p prostatectomy - no chemo or XRT Atrial fibrillation controlled w/ meds reason for eliquis; follows w/ Dr Purvis [facility] station med [place] Scoliosis Chronic neck and back pain History of skin cancer chest, shoulder Hypertension Surgical History History of cardioversion ~2005 History of lumbar surgery (04/2021) [facility] History of total left knee replacement (2019) Hx of prostatectomy Hx of LASIK History of surgery on left wrist History of carpal tunnel surgery of right wrist History of carpal tunnel surgery of left wrist Hx of arthroscopic knee surgery Hx of nasal septoplasty Hx of foot surgery LEFT Hx of toe surgery RIGHT History of ankle surgery LEFT Family History Sister Family history of diabetes mellitus Other History of kidney stones Osteoarthritis Social History Smoking Status: Never smoker Second Hand Exposure: Yes (OCCASSIONALLY); Do You Dip or Chew Tobacco: No; Tobacco Cessation Education Requested by Patient: No Hx Alcohol Use: Yes Hx Substance Use: No Preferred Language: Italian Communication Ability: Effective Visual Impairment: Limited Director Of Direct Marketing Required: No Beliefs That Will Affect Care: None marital status: Current Living Situation: Spouse current occupational status: retired Other Information That Helps Us Care for You: No Feels Safe at Home: Yes Safety Concerns: Feels Safe At This Time Assistive Devices: Cane and Glasses Physical Exam Physical Exam: General: WD/WN 73yo male sitting up in recliner eating dinner, NAD HEENT; head atraumatic, normocephalic, mmm,trachea midline Resp: even/unlabored, slightly diminished in the bases but no w/c/r, on room air CV: irregularly irregular, rates 70-80s, no significant m/r/g, no pitting edema, pulses present GI: +BS, soft/NT MSK/Neuro: dressing/jose wrap to RIGHT knee c/d/i, drain with bloody output, sensation intact, toes mobile, pulses present Psych: AOx3, cooperative with exam Results & Data Results & Data Vital Signs (Past 12 Hours) Vital Signs Temp Pulse Pulse Resp BP Pulse Ox O2 Del Method 11/24/23 17:00 36.6 C 83 18 135/85 95 Room Air 11/24/23 15:29 36.3 C L 76 18 146/86 H 94 Room Air 11/24/23 15:00 36.5 C 81 18 159/91 H 95 Room Air 11/24/23 14:30 36.3 C L 80 18 160/91 H 96 Room Air 11/24/23 13:59 36.5 C 80 18 143/84 H 94 Room Air 11/24/23 13:45 80 18 155/91 H 94 Room Air 11/24/23 13:35 72 16 130/83 95 Room Air 11/24/23 13:25 36.4 C L 85 16 134/77 95 Room Air 11/24/23 13:15 77 22 137/92 95 Room Air 11/24/23 13:05 84 16 146/92 H 95 Oxymask 11/24/23 12:55 36.4 C L 88 18 135/82 97 Oxymask 11/24/23 08:31 36.7 C 89 20 166/115 H 97 Room Air O2 Flow Rate 11/24/23 17:00 11/24/23 15:29 11/24/23 15:00 11/24/23 14:30 11/24/23 13:59 11/24/23 13:45 11/24/23 13:35 11/24/23 13:25 11/24/23 13:15 11/24/23 13:05 3 11/24/23 12:55 6 11/24/23 08:31 PG Care Time/CCT Total # of Minutes Spent Total Time Spent with Patient: Total time spent is greater than 50% in coordination of care (as documented) at patient's floor/unit and/or counseling patient: Coding Level of Care Code 83362 IN/OBS CONSULT LVL 3,45M Diagnoses Osteoarthritis of right knee M17.11 Atrial fibrillation I48.91 Hypertension I10 Lumbar spinal stenosis M48.061
[2023-11-24] MEDS: METOPROLOL SUCC 25MG EXT REL TAB PO ONE (18:10)
[2023-11-24] MEDS: diphenhydrAMINE Capsule 25 MG CAP PO PRN (19:47)
[2023-11-24] MEDS: DOCUSATE SODIUM 100 MG CAP PO SCH (20:54)
[2023-11-24] MEDS: SENNA 8.6 MG TAB PO SCH (20:54)
[2023-11-25 07:03] VITALS: BP 147/90; PULSE 67; TEMP 97.7; O2SAT 95
--- NOTE | 2023-11-25 08:00 | Hospitalist Progress Note ---
Date of Service November 25, 2023 Assessment & Plan (1) Osteoarthritis of right knee: Plan: s/p RIGHT Total knee replacement, imageless computer assisted navigation (Right) - Indio Anderson MD. EBL 75cc Pain control, antiemetics, bowel regimen per primary service 24hr abx ordered WBC wnl, afebrile Cr 1.47, pre-op was 1.39 - encouraged avoiding Naproxen at dc on eliquis - discussed w/ ortho and they do not plan on continuing naproxen at dc. Not on any HCTZ/lisinopril. Gabapentin dosed appropriately at max 1800mg/day for CrCl 54. 1gm IV mag to keep closer to 2 w/ afib. Metoprolol continued. DVT proph: eliquis resumed for this morning 11/24 PT/OT consults pending, WBAT Discussed w/ orthopedics and stable for discharge from medical perspective if feeling well this afternoon. Otherwise can follow along in AM. Please call with any questions/concerns (2) Atrial fibrillation: Plan: Metoprolol x 1 post-op as did not take AM prior to surgery and eliquis was on hold HR controlled, no symptoms Mag 1gm to keep closer to 2. K stable 4.3. Eliquis resumed this morning, metoprolol continued (3) Hypertension: Plan: Chronic, stable in setting of surgery/pain control Continues metoprolol daily (4) Lumbar spinal stenosis: Plan Thank you for allowing hospitalist service to participate in the care of Mr Plummer. Hospitalist service sign off at this time but can follow along in AM if remaining inpatient. Please call with any questions/concerns. Admission and Anticipated Discharge Date Admission Date: November 24, 2023 Subjective Evaluated this morning, sitting up in bed. Reports making good urine, no darkened/concentrated color and ortho planning to hold off NSAIDs w/ naproxen on home list at dc. Labs stable otherwise but did order 1gm IV mag to keep closer to 2. Pain controlled with ordered meds Denies passing gas but denies abdominal pain. Good BS on exam and encouraged continued bowel regimen at dc. NO fever/chills, chest pain, shortness of breath, lightheaded/dizziness. Planning to see how he does around lunch for possible discharge if feeling well. Questions/concerns addressed at this time. Physical Exam 2 Physical Exam: General: WD/WN 73yo male sitting up bed, NAD HEENT; head atraumatic, normocephalic, mmm,trachea midline Resp: even/unlabored, slightly diminished in the bases but no w/c/r, on room air CV: irregularly irregular, rates 60-70s, no significant m/r/g, no pitting edema but does have some LLE pedal edema, pulses present NO CALF tenderness GI: +BS, soft/NT MSK/Neuro: dressing/jose wrap to RIGHT knee c/d/i, drain with bloody output, sensation intact, toes mobile, pulses present, calves NONTENDER Psych: AOx3, cooperative with exam Results & Data Results & Data Vital Signs (Past 12 Hours) Vital Signs Temp Pulse Resp BP BP Pulse Ox O2 Del Method 11/25/23 07:01 36.5 C 67 18 147/90 H 95 Room Air 11/25/23 03:18 36.3 C L 70 18 123/78 94 Room Air 11/24/23 23:24 36.3 C L 76 18 144/84 H 96 Room Air 11/24/23 20:21 36.6 C 67 18 150/82 H 94 Room Air Laboratory Results 11/25/23 07:23 11/25/23 07:23 Mag 1.8 PG Care Time/CCT Total # of Minutes Spent Total Time Spent with Patient: Total time spent is greater than 50% in coordination of care (as documented) at patient's floor/unit and/or counseling patient: Coding Level of Care Code 06026 SUB INP/OBS CARE 2/35MIN Diagnoses Osteoarthritis of right knee M17.11 Atrial fibrillation I48.91 Hypertension I10 Lumbar spinal stenosis M48.061
[2023-11-25] MEDS: MULTIVITAMIN TAB PO SCH (08:13)
[2023-11-25] MEDS: METOPROLOL SUCC 25MG EXT REL TAB PO SCH (08:13)
[2023-11-25] MEDS: OMEGA-3 (PURIFIED FISH OIL) 1 GM CAP PO SCH (08:14)
[2023-11-25] MEDS: CHOLECALCIFEROL 25 MCG (1000 UNITS) TAB PO SCH (08:15)
[2023-11-25] MEDS: APIXABAN 5 MG TABLET PO SCH (08:15)
[2023-11-25 08:26] LABS: Hematocrit (blood only) 43.4 % (42.0-52.0); Hemoglobin 14.4 g/dl (14.0-18.0); Mean Corpuscular Hemoglobin 28.1 pg (25.0-34.0); Mean Corpuscular Hgb Conc 33.2 g/dL (32.0-36.0); Mean Corpuscular Volume 84.8 fL (80.0-100.0); Mean Platelet Volume 9.1 fL (9.4-12.4); Platelet Count 229 K/uL (130-400); Red Blood Count 5.12 M/uL (4.70-6.10); White Blood Count 10.03 K/ul (4.8-10.8)
[2023-11-25 08:37] LABS: BUN Creatinine Ratio 20.4 (10-20); Calcium 8.7 mg/dl (8.6-10.3); Est GFR (African American) 54.8 ml/min; Est GFR (Non-African American) 47.3 ml/min; Magnesium 1.8 mg/dl (1.7-2.4); Potassium 4.3 mmol/L (3.5-5.1)
--- NOTE | 2023-11-25 09:12 | Orthopedic Progress Note ---
Date of Service November 25, 2023 Assessment & Plan (1) Osteoarthritis of right knee: Plan: POD #1 s/p R TKA, doing as well as expected. Resume diet. WBAT with walker. OOB to chair. Continue pain control. Labs WNL, except for elevated BUN and creatinine. This is mildly elevated and similar to preop labs in August 2023. Discussed with hospitalist. Patient making urine. Will hold naproxen at discharge. Gabapentin dosage checked and appropriate - no adjustments were made/necessary. DVT prophylaxis: TEDs 3 weeks, foot pumps while in hospital, Eliquis resumed today. PT/OT. Will plan for discharge to home later today if pain controlled. Discharge instructions reviewed. Follow up tomorrow as outpatient for dressing change. Findings discussed with Dr. Anderson Admission and Anticipated Discharge Date Admission Date: November 24, 2023 Supervising Physician Co-Signing Physician Notes I, Dr. Anderson, saw and examined the patient. I discussed the management with my PA. I reviewed my PAs note and agree with the documented findings and attest to completing the substantive portion (medical decision making)/ plan of care I developed. Subjective patient doing fairly well. states that he's getting around "ok". Therapy states that he needs lots of reminding on which exercises to do. He's been out of bed ambulating in the hallway with a walker. Denies severe pain. When he does start to feel pain he states that oral pain medications are helping. Has been urinating normal. Denies any nausea, vomiting, chest pain, shortness of breath, lightheadedness or dizziness. Physical Exam Physical Exam: RLE: BCR < 2 sec. Sensation to light touch intact distally. Wiggling ankle and toes. Calf soft and non-tender. Dressing is clean, dry, intact. Able to preform straight leg raise. Musculoskeletal: Exam of right leg: Dressing clean, dry and intact. Able to independently SLR RLE. Distal pulses 1+, full ankle ROM with normal strength. Moves toes well. cap refill brisk. Sensation intact. Results & Data Vital Signs (Past 12 Hours) Vital Signs Temp Pulse Resp BP BP Pulse Ox O2 Del Method 11/25/23 07:01 36.5 C 67 18 147/90 H 95 Room Air 11/25/23 03:18 36.3 C L 70 18 123/78 94 Room Air 11/24/23 23:24 36.3 C L 76 18 144/84 H 96 Room Air Laboratory Results 11/25/23 Range/Units 07:23 WBC 10.03 (4.8-10.8) K/ul RBC 5.12 (4.70-6.10) M/uL Hgb 14.4 (14.0-18.0) g/dl Hct 43.4 (42.0-52.0) % MCV 84.8 (80.0-100.0) fL MCH 28.1 (25.0-34.0) pg MCHC 33.2 (32.0-36.0) g/dL RDW Std Deviation 43.0 (36.4-46.3) fL RDW Coeff of Marzena 14.0 (11.5-14.5) % Plt Count 229 (130-400) K/uL MPV 9.1 L (9.4-12.4) fL Sodium 138 (136-145) mmol/L Potassium 4.3 (3.5-5.1) mmol/L Chloride 103 (98-107) mmol/L Carbon Dioxide 27 (21-32) mmol/L Anion Gap 8 (3-11) BUN 30 H (6-23) mg/dl Creatinine 1.47 H (0.6-1.4) mg/dl Est Cr Clr Drug Dosing 54.0 ml/min Est GFR ( Amer) 54.8 ml/min Est GFR (Non-Af Amer) 47.3 ml/min BUN/Creatinine Ratio 20.4 H (10-20) Glucose 105 H (70-99(Fasting)) mg/dl Calcium 8.7 (8.6-10.3) mg/dl Magnesium 1.8 (1.7-2.4) mg/dl
[2023-11-25] MEDS: MAGNESIUM SULFATE / D5W 1 GM/100 ML BAG IV ONE (09:48)
--- NOTE | 2023-11-25 11:33 | Discharge Summary ---
Date of Service November 25, 2023 Discharge Data Consultations 11/24/23 13:59 Consult Hospitalist Routine Procedures Performed Operation Date: 11/24/23 10:05 Actual Procedures p Right Total Knee Arthroplasty(Right) - Indio Anderson MD Hospital Course (1) Osteoarthritis of right knee: Patient was kept in observation at [facility] after undergoing elective right total knee arthroplasty by Dr. Anderson on November 24, 2023. His surgery was performed with spinal anesthesia, peripheral nerve block and IV sedation. He was given 2 g of IV Ancef which was continued for 24 hours postoperatively. He was given 1 g of IV TXA preoperatively and 1 g of IV TXA intraoperatively for bleeding prophylaxis. X-rays performed in the recovery room shows a stable right knee prosthesis without any evidence of hardware failure or fracture. He was allowed out of bed, weight-bear as tolerated on the right lower extremity with the assistance of a walker. His vital signs remained stable during his inpatient stay. He did have blood work on postoperative day 1 which showed a normal CBC and an elevated BUN and creatinine which was mildly elevated and evaluated by the hospitalist. This is similar to results taken preoperatively in August. He is passing urine. The gabapentin dose was checked and is appropriate for his age. The naproxen was recommended to be held at discharge. His Eliquis was resumed on postoperative day 1. His home medications were also continued. He was given Tylenol, oxycodone and IV Dilaudi d to use as needed for pain. He did develop some mild pain on postoperative day 1 but noted that oral pain medication was adequate for controlling the pain. He was also given PEGGY stockings to wear for 3 weeks after surgery AV impulse boots while in the hospital for DVT prophylaxis. He was seen and evaluated by physical therapy as well as Occupational Therapy. A hospitalist consult was placed for postoperative medical management. He did well out of bed with physical therapy and Occupational Therapy on postoperative day 1. His dressings were kept in place. He will follow-up as scheduled on postoperative day 2 for a dressing change as an outpatient he was deemed safe for discharge to his home and was discharged to his home in stable condition on November 25, 2023. He will go home with home health. This was arranged preoperatively. Discharge instructions were reviewed. All questions were answered.
[2023-11-25] MEDS ORDERED: APIXABAN 5 MG TABLET PO SCH (21:00)
== END 2023-11-25 13:55 | disposition home health service (06) ==
LOC: ASU 07:37 → 3N 07:37